=== PATIENT | male | born 1940 | race Caucasian/White ===

== ENCOUNTER 2022-06-22 03:24 | Emergency (ER) | payer OTHER ==
[~2022-06-22] VITALS: Ht 182.9 cm; Wt 124.7 kg
[2022-06-22] MEDS ORDERED: DIPATR PO (05:02)
== END 2022-06-22 05:24 | disposition home or self-care (01) ==
LOC: ER 03:24
DX: R19.7 Diarrhea, unspecified (principal)
CPT/HCPCS: 99284; A9270

== ENCOUNTER → 2025-01-31 | Outpatient (CLI) | payer OTHER ==
[~2025-01-31] MED LIST: ALEVAZOL56.7 G1 TOP; ALFU10 PO; AMLO10 PO; ARNUITY ELLIPT50 MCG IH; ATOR20 PO; COREG6.25 MG PO; DIPATR PO; Docusate Sodiu250 MG PO; GABA300 PO; INSULANI; LORA10ER PO; MYRBETRIQ25 MG PO; Robaxin750 MG; SYNJARDY XR 121 EAC1 PO; VITAMIN D32000 UNI1 PO; WEGOVY1 MG/0.5 M SQ
[2025-02-03 13:22] LABS: HSV SUBTYPE SOURCE Not Provided
[2025-02-04 00:19] LABS: VARICELLA-ZOSTER VIRUS BY PCR Not Detected; VARICELLA-ZOSTER VIRUS SOURCE Not Provided
== END ==
LOC: LAB 13:50 → LAB SHORT 13:50
PROVIDERS: Physician Assistant Medical
DX: B02.9 Zoster without complications (principal)
CPT/HCPCS: 87529; 87798